=== PATIENT | female | born 1945 | race African-American/Black ===

== ENCOUNTER → 2016-05-10 | Outpatient (CLI) | payer MEDICARE, OTHER ==
[~2016-05-10] MED LIST: AMLO5TAB22 PO; CALC-131 OG; CHEL50TA PO; CHRO500T4 PO; COUM2.5T PO; CRAN200C PO; CYCL-36 PO; DILT30 PO; EXEN1INJ INJ; FLON0.053; GLUCCAP PO; HYDR12.56 PO; LACTCAP7 PO; LORTA5 PO; NEXI40CA PO; POTA-243 PO; PREM0.622 PO; PTU50 PO; SITA100 PO; TOPR100T15 PO; VITAMIN D; Z.0.COMMODE-3:1; Z.0.CPM; Z.0.WALKERFRONT; ZOCO40TA PO; [UNRECOGNIZED DRUG - CODE]
[2016-05-10 16:24] LABS: FREE T4 1.11 NG/DL (0.76-1.46)
== END ==
LOC: CLAB 15:35
DX: E05.00 Thyrotoxicosis with diffuse goiter without thyrotoxic crisis or storm (principal)
CPT/HCPCS: 36415; 84439; 84443

== ENCOUNTER → 2016-07-18 | Outpatient (CLI) | payer MEDICARE, OTHER ==
[2016-07-18 15:48] LABS: AUTOMATED NEUTROPHIL # 4.8 TH/MM3 (1.8-7.7); BASOPHIL % 0.5 % (0.0-2.0); EOSINOPHIL # 0.1 TH/MM3 (0-0.4); EOSINOPHIL % 1.3 % (0.0-4.0); HEMATOCRIT 36.4 % (35.0-46.0); HEMO FLAGS DIFF FINAL; LYMPH % 31.1 % (9.0-44.0); LYMPHOCYTE # 2.5 TH/MM3 (1.0-4.8); MEAN CORPUSCULAR HEMOGLOBIN 30.5 PG (27.0-34.0); MEAN CORPUSCULAR HGB CONC 33.5 % (32.0-36.0); MONO % 7.8 % (0.0-8.0); NEUT % 59.3 % (16.0-70.0); PLATELET COUNT 258 TH/MM3 (150-450); RED CELL DISTRIBUTION WIDTH 14.7 % (11.6-17.2); WHITE BLOOD COUNT 8.1 TH/MM3 (4.0-11.0)
[2016-07-18 16:01] LABS: BLOOD, URINE NEG (NEG); GLUCOSE,URINE NEG (NEG); KETONE, URINE NEG (NEG); MUCUS URINE FEW /lpf (OCC); NITRITE,URINE NEG (NEG); PH, URINE 6.5 (5.0-8.5); SQUAMOUS EPITHELIAL CELL URINE 2 /hpf (0-5); URINE COLOR YELLOW (YELLW/STRAW)
[2016-07-18 16:16] LABS: MICRO ALBUMIN RANDOM URINE RAW 6.9 MG/L (0.0-30.0)
[2016-07-18 16:17] LABS: ALT (GPT) 16 U/L (10-53); ANION GAP 9 MEQ/L (5-15); AST (GOT) 15 U/L (15-37); BICARBONATE 29.3 MEQ/L (21.0-32.0); BLOOD UREA NITROGEN 12 MG/DL (7-18); CHLORIDE 100 MEQ/L (98-107); GLOMERULAR FILTRATION RATE 68 ML/MIN (>89); GLUCOSE,FASTING 89 MG/DL (74-99); POTASSIUM 3.7 MEQ/L (3.5-5.1); SODIUM (NA) 138 MEQ/L (136-145)
[2016-07-18 16:19] LABS: ALKALINE PHOSPHATASE 75 U/L (45-117); HDL CHOLESTEROL 72.8 MG/DL (40.0-60.0); LDL CHOLESTEROL 87 MG/DL (0-99); TOTAL BILIRUBIN ADULT 0.4 MG/DL (0.2-1.0)
[2016-07-18 17:12] LABS: HEMOGLOBIN A1b 0.9 %; HEMOGLOBIN Ao 84.4 %; HEMOGLOBIN F 0.9 %; HEMOGLOBIN P3 3.4 %
== END ==
LOC: CLAB 15:11
PROVIDERS: ATTEND Internal Medicine
DX: E11.9 Type 2 diabetes mellitus without complications (principal); I10 Essential (primary) hypertension; E78.00 Pure hypercholesterolemia, unspecified; N39.0 Urinary tract infection, site not specified
CPT/HCPCS: 36415; 80053; 80061; 81001; 82043; 83036; 85025; 87086

== ENCOUNTER → 2016-09-06 | Outpatient (CLI) | payer MEDICARE, OTHER ==
[2016-09-06 13:23] LABS: FREE T4 1.11 NG/DL (0.76-1.46)
== END ==
LOC: CLAB 12:34
DX: E05.00 Thyrotoxicosis with diffuse goiter without thyrotoxic crisis or storm (principal)
CPT/HCPCS: 36415; 84439; 84443

== ENCOUNTER → 2016-11-15 | Outpatient (CLI) | payer MEDICARE, OTHER ==
[2016-11-15 15:33] LABS: AUTOMATED NEUTROPHIL # 4.3 TH/MM3 (1.8-7.7); BASOPHIL % 0.5 % (0.0-2.0); EOSINOPHIL # 0.2 TH/MM3 (0-0.4); EOSINOPHIL % 2.6 % (0.0-4.0); HEMATOCRIT 36.7 % (35.0-46.0); HEMO FLAGS DIFF FINAL; LYMPH % 28.9 % (9.0-44.0); MEAN CELL VOLUME 90.5 FL (80.0-100.0); MEAN CORPUSCULAR HEMOGLOBIN 30.1 PG (27.0-34.0); MEAN CORPUSCULAR HGB CONC 33.3 % (32.0-36.0); MONO % 6.1 % (0.0-8.0); NEUT % 61.9 % (16.0-70.0); PLATELET COUNT 279 TH/MM3 (150-450); RED BLOOD COUNT 4.05 MIL/MM3 (4.00-5.30); RED CELL DISTRIBUTION WIDTH 14.4 % (11.6-17.2); WHITE BLOOD COUNT 6.9 TH/MM3 (4.0-11.0)
[2016-11-15 15:57] LABS: ALT (GPT) 14 U/L (10-53); ANION GAP 6 MEQ/L (5-15); AST (GOT) 17 U/L (15-37); BICARBONATE 29.7 MEQ/L (21.0-32.0); BLOOD UREA NITROGEN 8 MG/DL (7-18); CHLORIDE 102 MEQ/L (98-107); GLOMERULAR FILTRATION RATE 71 ML/MIN (>89); GLUCOSE,FASTING 87 MG/DL (74-99); POTASSIUM 3.8 MEQ/L (3.5-5.1); SODIUM (NA) 138 MEQ/L (136-145)
[2016-11-15 16:04] LABS: ALKALINE PHOSPHATASE 73 U/L (45-117); HDL CHOLESTEROL 63.5 MG/DL (40.0-60.0); LDL CHOLESTEROL 91 MG/DL (0-99); TOTAL BILIRUBIN ADULT 0.4 MG/DL (0.2-1.0)
[2016-11-15 16:17] LABS: BLOOD, URINE NEG (NEG); COMMENT (UR) CULTURE INDICATED; CULTURE IF INDICATED CULTURE INDICATED; GLUCOSE,URINE NEG (NEG); KETONE, URINE NEG (NEG); NITRITE,URINE NEG (NEG); SQUAMOUS EPITHELIAL CELL URINE 3 /hpf (0-5); TRANSITIONAL EPI CELLS, URINE 3 /hpf; URINE COLOR YELLOW (YELLW/STRAW)
[2016-11-15 16:27] LABS: CREATININE RANDOM URINE 136 MG/DL (27-300)
[2016-11-15 16:36] LABS: MICRO ALBUMIN RANDOM URINE RAW LESS THAN 5.0 MG/L (0.0-30.0); MICROALBUMIN/CREAT RATIO RAND 4 MG/G CRE (0-30)
[2016-11-15 19:39] LABS: HEMOGLOBIN A1a 1.1 %; HEMOGLOBIN A1b 0.9 %; HEMOGLOBIN Ao 84.4 %; HEMOGLOBIN LA1C 1.8 %; HEMOGLOBIN P3 3.3 %
== END ==
LOC: CLAB 14:39
PROVIDERS: ATTEND Internal Medicine
DX: E78.2 Mixed hyperlipidemia (principal); I10 Essential (primary) hypertension; E11.9 Type 2 diabetes mellitus without complications; R82.90 Unspecified abnormal findings in urine
CPT/HCPCS: 36415; 80053; 80061; 81001; 82043; 83036; 85025; 87086

== ENCOUNTER → 2017-01-10 | Outpatient (CLI) | payer MEDICARE, OTHER ==
[2017-01-10 14:09] LABS: FREE T4 1.19 NG/DL (0.76-1.46)
== END ==
LOC: CLAB 12:38
DX: E05.00 Thyrotoxicosis with diffuse goiter without thyrotoxic crisis or storm (principal)
CPT/HCPCS: 36415; 84439; 84443

== ENCOUNTER → 2017-02-14 | Outpatient (CLI) | payer MEDICARE, OTHER ==
[2017-02-14 14:51] LABS: HEMATOCRIT 36.3 % (35.0-46.0); MEAN CELL VOLUME 91.3 FL (80.0-100.0); MEAN CORPUSCULAR HEMOGLOBIN 30.1 PG (27.0-34.0); MEAN CORPUSCULAR HGB CONC 32.9 % (32.0-36.0); PLATELET COUNT 288 TH/MM3 (150-450); RED BLOOD COUNT 3.98 MIL/MM3 (4.00-5.30); RED CELL DISTRIBUTION WIDTH 14.1 % (11.6-17.2); REVIEW FLAG FINAL; WHITE BLOOD COUNT 6.3 TH/MM3 (4.0-11.0)
[2017-02-14 14:59] LABS: BLOOD, URINE NEG (NEG); GLUCOSE,URINE NEG (NEG); KETONE, URINE NEG (NEG); NITRITE,URINE NEG (NEG); PH, URINE 6.5 (5.0-8.5); SQUAMOUS EPITHELIAL CELL URINE <1 /hpf (0-5); URINE COLOR LIGHT-YELLOW (YELLW/STRAW)
[2017-02-14 15:03] LABS: COMMENT (UR) CULT NOT INDICATED; CULTURE IF INDICATED CULT NOT INDICATED
[2017-02-14 15:10] LABS: ALT (GPT) 15 U/L (10-53); ANION GAP 5 MEQ/L (5-15); AST (GOT) 14 U/L (15-37); BICARBONATE 30.3 MEQ/L (21.0-32.0); BLOOD UREA NITROGEN 10 MG/DL (7-18); CHLORIDE 104 MEQ/L (98-107); GLOMERULAR FILTRATION RATE 75 ML/MIN (>89); GLUCOSE,FASTING 79 MG/DL (74-99); SODIUM (NA) 139 MEQ/L (136-145)
[2017-02-14 15:13] LABS: ALKALINE PHOSPHATASE 69 U/L (45-117); HDL CHOLESTEROL 70.1 MG/DL (40.0-60.0); LDL CHOLESTEROL 84 MG/DL (0-99); TOTAL BILIRUBIN ADULT 0.4 MG/DL (0.2-1.0)
[2017-02-14 15:58] LABS: HEMOGLOBIN A1a 1.1 %; HEMOGLOBIN A1b 0.8 %; HEMOGLOBIN Ao 84.3 %; HEMOGLOBIN LA1C 1.9 %; HEMOGLOBIN P3 3.3 %
== END ==
LOC: CLAB 14:28
PROVIDERS: ATTEND Internal Medicine
DX: E11.9 Type 2 diabetes mellitus without complications (principal); E78.2 Mixed hyperlipidemia; I10 Essential (primary) hypertension
CPT/HCPCS: 36415; 80053; 80061; 81001; 83036; 85027

== ENCOUNTER → 2017-05-15 | Outpatient (CLI) | payer MEDICARE, OTHER ==
[2017-05-15 16:03] LABS: BILIRUBIN, URINE NEG (NEG); BLOOD, URINE NEG (NEG); GLUCOSE,URINE NEG (NEG); KETONE, URINE NEG (NEG); NITRITE,URINE NEG (NEG); PH, URINE 6.5 (5.0-8.5); SQUAMOUS EPITHELIAL CELL URINE <1 /hpf (0-5); URINE COLOR LIGHT-YELLOW (YELLW/STRAW); URINE LEUKOCYTE ESTERASE NEG (NEG)
[2017-05-15 16:04] LABS: AUTOMATED NEUTROPHIL # 4.1 TH/MM3 (1.8-7.7); BASOPHIL % 0.5 % (0.0-2.0); EOSINOPHIL # 0.1 TH/MM3 (0-0.4); EOSINOPHIL % 1.6 % (0.0-4.0); HEMATOCRIT 37.6 % (35.0-46.0); HEMOGLOBIN 12.3 GM/DL (11.6-15.3); LYMPH % 32.3 % (9.0-44.0); LYMPHOCYTE # 2.2 TH/MM3 (1.0-4.8); MEAN CELL VOLUME 91.1 FL (80.0-100.0); MEAN CORPUSCULAR HEMOGLOBIN 29.9 PG (27.0-34.0); MEAN CORPUSCULAR HGB CONC 32.8 % (32.0-36.0); MEAN PLATELET VOLUME 7.9 FL (7.0-11.0); MONO % 6.4 % (0.0-8.0); MONOCYTE # 0.4 TH/MM3 (0-0.9); NEUT % 59.2 % (16.0-70.0); PLATELET COUNT 269 TH/MM3 (150-450); RED BLOOD COUNT 4.13 MIL/MM3 (4.00-5.30); RED CELL DISTRIBUTION WIDTH 14.4 % (11.6-17.2); WHITE BLOOD COUNT 6.9 TH/MM3 (4.0-11.0)
[2017-05-15 16:26] LABS: ALBUMIN 3.5 GM/DL (3.4-5.0); ALT (GPT) 20 U/L (10-53); AST (GOT) 14 U/L (15-37); BICARBONATE 31.1 MEQ/L (21.0-32.0); BLOOD UREA NITROGEN 10 MG/DL (7-18); CALCIUM 8.7 MG/DL (8.5-10.1); CHLORIDE 103 MEQ/L (98-107); CHOLESTEROL 178 MG/DL (120-200); CREATININE 0.91 MG/DL (0.50-1.00); GLOMERULAR FILTRATION RATE 73 ML/MIN (>89); GLUCOSE,FASTING 89 MG/DL (74-99); SODIUM (NA) 140 MEQ/L (136-145)
[2017-05-15 16:29] LABS: ALKALINE PHOSPHATASE 75 U/L (45-117); CHOLESTEROL/ HDL RATIO 2.53 RATIO; HDL CHOLESTEROL 70.1 MG/DL (40.0-60.0); LDL CHOLESTEROL 100 MG/DL (0-99); TOTAL BILIRUBIN ADULT 0.4 MG/DL (0.2-1.0); TOTAL PROTEIN 7.9 GM/DL (6.4-8.2); TRIGLYCERIDES 40 MG/DL (42-150)
[2017-05-15 17:05] LABS: HEMOGLOBIN A1C 5.7 % (4.3-6.0)
== END ==
LOC: CLAB 15:32
DX: E78.2 Mixed hyperlipidemia (principal); I10 Essential (primary) hypertension; E11.9 Type 2 diabetes mellitus without complications
CPT/HCPCS: 36415; 80053; 80061; 81001; 83036; 85025

== ENCOUNTER → 2017-08-21 | Outpatient (CLI) | payer MEDICARE, OTHER ==
[2017-08-21 16:10] LABS: AUTOMATED NEUTROPHIL # 4.7 TH/MM3 (1.8-7.7); BASOPHIL % 0.5 % (0.0-2.0); EOSINOPHIL # 0.1 TH/MM3 (0-0.4); EOSINOPHIL % 1.9 % (0.0-4.0); HEMATOCRIT 36.2 % (35.0-46.0); HEMOGLOBIN 12.7 GM/DL (11.6-15.3); LYMPH % 27.7 % (9.0-44.0); LYMPHOCYTE # 2.1 TH/MM3 (1.0-4.8); MEAN CELL VOLUME 90.7 FL (80.0-100.0); MEAN CORPUSCULAR HEMOGLOBIN 31.9 PG (27.0-34.0); MEAN CORPUSCULAR HGB CONC 35.1 % (32.0-36.0); MEAN PLATELET VOLUME 7.5 FL (7.0-11.0); MONO % 8.2 % (0.0-8.0); MONOCYTE # 0.6 TH/MM3 (0-0.9); NEUT % 61.7 % (16.0-70.0); PLATELET COUNT 282 TH/MM3 (150-450); RED BLOOD COUNT 3.99 MIL/MM3 (4.00-5.30); RED CELL DISTRIBUTION WIDTH 13.9 % (11.6-17.2); WHITE BLOOD COUNT 7.7 TH/MM3 (4.0-11.0)
[2017-08-21 16:12] LABS: BACTERIA, URINE FEW /hpf; BILIRUBIN, URINE NEG (NEG); BLOOD, URINE NEG (NEG); GLUCOSE,URINE NEG (NEG); KETONE, URINE NEG (NEG); NITRITE,URINE NEG (NEG); SQUAMOUS EPITHELIAL CELL URINE 4 /hpf (0-5); URINE COLOR YELLOW (YELLW/STRAW); URINE LEUKOCYTE ESTERASE LARGE (NEG)
[2017-08-21 16:30] LABS: ALBUMIN 3.2 GM/DL (3.4-5.0); ALT (GPT) 18 U/L (10-53); AST (GOT) 18 U/L (15-37); BICARBONATE 31.7 MEQ/L (21.0-32.0); BLOOD UREA NITROGEN 8 MG/DL (7-18); CALCIUM 8.7 MG/DL (8.5-10.1); CHLORIDE 103 MEQ/L (98-107); CHOLESTEROL 186 MG/DL (120-200); CREATININE 0.87 MG/DL (0.50-1.00); GLOMERULAR FILTRATION RATE 77 ML/MIN (>89); GLUCOSE,FASTING 77 MG/DL (74-99); SODIUM (NA) 139 MEQ/L (136-145)
[2017-08-21 16:39] LABS: ALKALINE PHOSPHATASE 75 U/L (45-117); CHOLESTEROL/ HDL RATIO 3.29 RATIO; FREE T4 1.16 NG/DL (0.76-1.46); HDL CHOLESTEROL 56.5 MG/DL (40.0-60.0); LDL CHOLESTEROL 117 MG/DL (0-99); TOTAL BILIRUBIN ADULT 0.4 MG/DL (0.2-1.0); TOTAL PROTEIN 7.7 GM/DL (6.4-8.2); TRIGLYCERIDES 64 MG/DL (42-150)
[2017-08-21 20:28] LABS: HEMOGLOBIN A1C 5.6 % (4.3-6.0)
== END ==
LOC: CLAB 15:22
DX: E78.00 Pure hypercholesterolemia, unspecified (principal); E11.9 Type 2 diabetes mellitus without complications; I10 Essential (primary) hypertension; E03.9 Hypothyroidism, unspecified
CPT/HCPCS: 36415; 80053; 80061; 81001; 82043; 83036; 84439; 84443; 84481; 85025

== ENCOUNTER → 2017-08-29 | Outpatient (CLI) | payer MEDICARE, OTHER ==
[2017-08-29 16:46] LABS: FREE T4 1.05 NG/DL (0.76-1.46)
[2017-08-31 17:54] LABS: THYROGLOB ABS 123 IU/mL (< OR = 1); THYROID PEROX AB (MICROSOMAL) GREATER THAN 1000 IU/mL (<9)
== END ==
LOC: CLAB 15:29
DX: E05.20 Thyrotoxicosis with toxic multinodular goiter without thyrotoxic crisis or storm (principal)
CPT/HCPCS: 36415; 84439; 84443; 84445; 86376; 86800